=== PATIENT | female | born 1960 | race Two or more races ===

== ENCOUNTER 2019-10-19 15:00 | Inpatient (IN) | payer MEDICAID ==
[~2019-10-19] VITALS: Ht 167.6 cm; Wt 48.1 kg
--- NOTE | 2019-10-19 15:16 | NUR ---
BIB [facility] C/O CHILLS AND BODY ACHES X 1 WEEK. +FEVER, PRESENTS MOANING AND IN DISCOMFORT. PT COMPLETED DIALYSIS TODAY, AV SHUNT AT RIGHT UPPER ARM. LEFT BELOW THE KNEE AMPUTATION. HAVING SOME SOB, PLACED ON 2L VIA NC. SKIN WARM, DRY, INTACT. PLACED ON MONITOR, READY FOR EVAL.
[2019-10-19 16:09] LABS: BASOPHILS % (AUTO) 0.7 % (0.0-2.0); HEMATOCRIT 30 % (33-45); HEMOGLOBIN 9.9 g/dL (11.5-14.8); LYMPHOCYTES # (AUTO) 0.8 /CMM (0.8-4.8); LYMPHOCYTES % (AUTO) 15.4 % (20.0-44.0); MEAN CORPUSCULAR HGB CONC 33 g/dl (31.0-36.0); MEAN CORPUSCULAR VOLUME 95 fL (82-100); MONOCYTES # (AUTO) 0.3 /CMM (0.1-1.30); MONOCYTES % (AUTO) 6.2 % (2.0-12.0); NEUTROPHILS # (AUTO) 3.8 /CMM (1.8-8.9); NEUTROPHILS % (AUTO) 77.7 % (43.0-81.0); PLATELET COUNT (AUTO) 112 /CMM (150-450); RED BLOOD CELL COUNT(AUTO) 3.18 MIL/uL (4.0-5.2); WHITE BLOOD COUNT (AUTO) 4.9 K/uL (4.3-11.0)
--- NOTE | 2019-10-19 16:10 | NUR ---
IV LINE ESTABLISHED, BLOOD AND BLOOD CULTURES DRAWN. FLU AND MURPHY SWAB COMPLETE. ALL SENT TO STAT LAB. PT JORJE WELL.
--- NOTE | 2019-10-19 16:13 | NUR ---
ICE CREAM TRUCK DRIVER AT BEDSIDE
[2019-10-19 16:19] LABS: CALCIUM, SERUM 8.5 mg/dL (8.5-10.1); CREATININE 5.9 mg/dL (0.6-1.3); POTASSIUM 4.8 mmol/L (3.5-5.1)
[2019-10-19 16:26] LABS: ALBUMIN 2.6 g/dL (3.4-5.0); BILIRUBIN,DIRECT 0.1 mg/dL (0.0-0.2); BILIRUBIN,TOTAL 0.4 mg/dL (0.2-1.0); TOTAL PROTEIN, SERUM 7.1 g/dL (6.4-8.2)
[2019-10-19] MEDS ORDERED: SEVE800T8 PO (16:43)
[2019-10-19] MEDS ORDERED: LORA10TA7 PO (16:43)
[2019-10-19] MEDS ORDERED: LOPE2TAB25 PO (16:43)
[2019-10-19] MEDS ORDERED: VIT1TABL46 PO (16:43)
[2019-10-19] MEDS ORDERED: AMIN30LI2 PO (16:43)
[2019-10-19] MEDS ORDERED: SENN-175 PO (16:43)
[2019-10-19] MEDS ORDERED: CARV12.52 PO (16:43)
[2019-10-19] MEDS ORDERED: GABA-534 PO (16:43)
[2019-10-19] MEDS ORDERED: FLUT16SP16 NS (16:43)
[2019-10-19] MEDS ORDERED: CLON0.1T PO (16:43)
[2019-10-19] MEDS ORDERED: ACET325T53 PO (16:43)
[2019-10-19] MEDS ORDERED: BISA10SU61 RC (16:43)
[2019-10-19] MEDS ORDERED: CLOP75TA15 PO (16:43)
[2019-10-19] MEDS ORDERED: INSU100V39 SQ (16:43)
[2019-10-19] MEDS ORDERED: INSU100I26 SQ ×2 (16:43)
[2019-10-19] MEDS ORDERED: ATOR80TA PO (16:43)
[2019-10-19] MEDS ORDERED: CHOL500062 PO (16:43)
[2019-10-19] MEDS ORDERED: DEXT15DR6 OP (16:43)
[2019-10-19] MEDS ORDERED: OMEP20CA15 PO (16:43)
[2019-10-19] MEDS ORDERED: DICL100G16 TP (16:44)
[2019-10-19] MEDS ORDERED: MEROPENEM 500 MG in IV NS 0.9% 50 ML IV ONE (17:00)
[2019-10-19] MEDS ORDERED: ACETAMINOPHEN 325 MG TABLET PO ONE (17:00)
[2019-10-19] MEDS ORDERED: VANCOMYCIN 1 GM in IV D5W 250 ML IV ONE ×2 (17:00→20:00)
[2019-10-19] MEDS ORDERED: AZITHROMYCIN 500 MG in IV D5W 250 ML IV ONE (17:00)
[2019-10-19] MEDS ORDERED: ACETAMINOPHEN 325 MG TABLET ONE (17:04)
[2019-10-19] MEDS ORDERED: ASPIRIN 81 MG TAB.CHEW PO ONE (17:30)
--- NOTE | 2019-10-19 17:55 | NUR ---
Darrell ann in [facility] - 10/19/19 at 1804 by PATRICIA AFRICA CATH PLACED PER MD TONEY, URINE SENT TO STAT LAB
--- NOTE | 2019-10-19 17:55 | NUR ---
LEGER CATH PLACED PER MD ORDER, URINE SENT TO STAT LAB. CATHETER DC'D
[2019-10-19] MEDS ORDERED: ACETAMINOPHEN 325 MG TABLET PO PRN (18:00)
[2019-10-19 18:10] LABS: APPEARANCE,URINE Turbid (CLEAR); BILIRUBIN,URINE Negative (NEGATIVE); BLOOD, URINE Moderate Ery/uL (NEGATIVE); COLOR,URINE Yellow (YELLOW); KETONES,URINE Trace (NEGATIVE); LEUKOCYTE ESTERASE ,URINE Large (NEGATIVE); NITRITE, URINE Negative (NEGATIVE); PH,URINE 7.5 (5.0-8.0); PROTEIN,URINE >=300 mg/dl (NEGATIVE); UGLUCOSE Negative (NEGATIVE); UROBILINOGEN,URINE 0.2 EU/dL (0.2)
[2019-10-19 18:21] LABS: BACTERIA,URINE Many /HPF (None Seen); SQUAMOUS EPITHELIAL CELL,UR Rare /HPF (None Seen); WBC,URINE 21-50 /HPF (0-3)
[2019-10-19 18:33] LABS: ABG PCO2 39.5 mmHg (35.0-45.0); ABG PH 7.481 (7.350-7.450); ABG PO2 88.1 mmHg (75.0-100.0); AaDO2 93.8 mmHg; COHb 1.3 % (0.5-1.5); MetHb 0.3 % (0.0-1.5); O2Hb 94.5 % (94.0-97.0); SITE, ABG Left Brachial; VENT MODE, BG Nasal Cannula
--- NOTE | 2019-10-19 18:40 | NUR ---
REPORT GIVEN TO SANTY MAGANA FOR 117-1 T, E[facility] ADMITTING.
[2019-10-19] MEDS ORDERED: VANCOMYCIN 500 MG in IV D5W 100 ML IV PRN (19:00)
[2019-10-19] MEDS ORDERED: HYDROCODONE/APAP 5/325MG 1 EACH TABLET PO PRN (19:00)
[2019-10-19] MEDS ORDERED: MAG HYDROX/AL HYDROX/SIMETH 30 ML UDC PO PRN (19:00)
[2019-10-19] MEDS ORDERED: Z GUARD REMEDY 2 OZ OINT TP PRN (19:00)
[2019-10-19] MEDS ORDERED: ONDANSETRON HCL/PF 4 MG/2 ML VIAL IVP PRN (19:00)
[2019-10-19] MEDS ORDERED: MAGNESIUM HYDROXIDE 30 ML UDC PO PRN (19:00)
--- NOTE | 2019-10-19 19:00 | NUR ---
PT TRANSFERR[facility]
[2019-10-19] MEDS ORDERED: FEE PK DOSING 1 MIN EA MC ONE (19:03)
[2019-10-19] MEDS ORDERED: ASPIRIN 81 MG TAB.CHEW ONE (19:17)
[2019-10-19] MEDS: HYDROXYCHLOROQUINE 200 MG TABLET PO SCH (19:46)
[2019-10-19 20:00] VITALS: BP 116/64
--- NOTE | 2019-10-19 20:19 | NUR ---
RN NOTE RECEIVED ALERT FOR TROPONIN LEVEL 1.711 TRENDING UPWARD FROM 1.469. PAGED EAGLE MACK.
--- NOTE | 2019-10-19 20:25 | NUR ---
RN NOTE DR. GUILLERMO CALLED BACK REGARDING TROPONIN LEVEL. NO NEW ORDERS GIVEN.
[2019-10-19 20:52] LABS: C-REACTIVE PROTEIN 33.1 mg/dL (0.0-0.9)
[2019-10-19] MEDS: ACETAMINOPHEN 325 MG TABLET PO PRN (21:19)
[2019-10-20] VITALS: BP 138/54
--- NOTE | 2019-10-20 01:20 | NUR ---
RN NOTE RECEIVED ALERT FOR TROPONIN LEVEL 1.490. NOTED TO BE TRENDING DOWNWARD. NOTIFIED PENG TOSCANO (ASSISTANT DEAN OF STUDENTS ATLASSIAN ADMINISTRATOR) WITH NO NEW ORDERS.
--- NOTE | 2019-10-20 03:15 | NUR ---
RN NOTE PT WITH COMPLAINT OF RECURRENT ABDOMINAL PAIN. PT STATES SHE HAS NOT HAD A BOWEL MOVEMENT IN 3 DAYS. ADMINISTERED MILK OF MAGNESIA 30ML PO AT 0039 BUT INEFFECTIVE. PENG TOSCANO (POWER PLANT MANAGER) NOTIFIED WITH ORDER TO ADMINISTER HALF A BOTTLE OF MAGNESIUM CITRATE AND 1 APPLICATION OF FLEET ENEMA. ORDER NOTED AND CARRIED OUT.
--- NOTE | 2019-10-20 03:15 | NUR ---
RN NOTE PENG GODFREY ALSO WITH ORDER TO DO KUB. ORDER NOTED AND CARRIED OUT.
[2019-10-20] MEDS ORDERED: MAGNESIUM CITRATE 296 ML BOTTLE PO ONE (03:30)
[2019-10-20] MEDS ORDERED: NA PHOS,M-B/NA PHOS,DI-BA 1 EA ENEMA RC PRN (03:30)
[2019-10-20 04:00] VITALS: BP 135/63
[2019-10-20] MEDS: ACETAMINOPHEN 325 MG TABLET PO PRN ×2 (04:07→12:43)
--- NOTE | 2019-10-20 04:07 | NUR ---
RN NOTE PT NOTED WITH TEMP 100.9 ORALLY. ADMINISTERED ACETAMINOPHEN 325MG 2 TABS PO FOR HIGH TEMP. COOLING MEASURES APPLIED. PENG TOSCANO WINDOW AIR CONDITIONER INSTALLER NOTIFIED WITH ORDER TO DO REPEAT BLOOD CULTURES. ORDER NOTED AND CARRIED.
[2019-10-20 06:22] LABS: BASOPHILS % (AUTO) 0.4 % (0.0-2.0); EOSINOPHILS % (AUTO) 0.1 % (0.0-6.0); HEMATOCRIT 29 % (33-45); HEMOGLOBIN 9.7 g/dL (11.5-14.8); LYMPHOCYTES # (AUTO) 0.8 /CMM (0.8-4.8); LYMPHOCYTES % (AUTO) 15.5 % (20.0-44.0); MEAN CORPUSCULAR HGB CONC 33 g/dl (31.0-36.0); MEAN CORPUSCULAR VOLUME 95 fL (82-100); MONOCYTES # (AUTO) 0.3 /CMM (0.1-1.30); MONOCYTES % (AUTO) 7.1 % (2.0-12.0); NEUTROPHILS # (AUTO) 3.7 /CMM (1.8-8.9); NEUTROPHILS % (AUTO) 76.9 % (43.0-81.0); PLATELET COUNT (AUTO) 112 /CMM (150-450); RED BLOOD CELL COUNT(AUTO) 3.09 MIL/uL (4.0-5.2); WHITE BLOOD COUNT (AUTO) 4.9 K/uL (4.3-11.0)
[2019-10-20 06:48] LABS: ALBUMIN 2.5 g/dL (3.4-5.0); BILIRUBIN,TOTAL 0.4 mg/dL (0.2-1.0); CALCIUM, SERUM 8.6 mg/dL (8.5-10.1); CREATININE 7.4 mg/dL (0.6-1.3); POTASSIUM 4.7 mmol/L (3.5-5.1)
--- NOTE | 2019-10-20 07:30 | NUR ---
LICENSED MASS REAL ESTATE APPRAISER NOTES RECEIVED WRITTEN REPORT FROM MOBILE SECURITY SPECIALIST NURSE SHABNAM RN, PT IN BED, RESTING, ALERT AND ORIENTED, NO SOB, NO SIGN OF PAIN, KEPT COMFORTABLE, CALL LIGHT WITHIN REACH.
[2019-10-20 08:00] VITALS: BP 97/25
[2019-10-20] MEDS: SEVELAMER CARBONATE 800 MG TABLET PO SCH ×3 (08:38→17:00)
[2019-10-20] MEDS: GABAPENTIN 300 MG CAPSULE PO SCH (08:38)
[2019-10-20] MEDS: CLOPIDOGREL BISULFATE 75 MG TABLET PO SCH (08:38)
[2019-10-20] MEDS: HYDROXYCHLOROQUINE 200 MG TABLET PO SCH ×2 (08:38→16:22)
--- NOTE | 2019-10-20 08:57 | NUR ---
WOUND CARE CONSULT: REVIEWED NURSING DOCUMENTATION INCLUDING PHOTOS FROM ADMISSION WHICH SHOW SCRATCH DOWD TO ABDOMEN AND BACK WELL SACRAL SCARRING, PRESENT ON ADMISSION. RECOMMENDATIONS MADE FOR SKIN PROTECTION. DISCUSSED WITH NURSING STAFF AND VISUALIZATION DEVELOPER. WILL SEE PRN. CASTAÑEDA IN AGREEMENT WITH PLAN OF CARE. CURRENT RISHI SCORE IS 15.
--- NOTE | 2019-10-20 10:53 | NUR ---
DIRECTOR OF OUTREACH NOTES RECEIVED POSITIVE COVID RESULT, DR. GUILLERMO INFORMED.
[2019-10-20 12:00] VITALS: BP 123/65
[2019-10-20] MEDS: APIXABAN 2.5 MG TABLET PO SCH ×2 (12:59→16:23)
[2019-10-20 16:00] VITALS: BP 103/40
[2019-10-20] MEDS: MEROPENEM 500 MG in IV NS 0.9% 50 ML IV SCH (16:24)
[2019-10-20] MEDS ORDERED: AZITHROMYCIN 250 MG in IV D5W 250 ML IV SCH (18:00)
--- NOTE | 2019-10-20 18:34 | NUR ---
COKE PRODUCTION HEATER NOTES PT IN BED, ASLEEP, EASY TO AROUSE, ALERT AND ORIENTED, DENIES PAIN, NOT IN DISTRESS, DUE MEDS GIVEN ORDERED, DR. GUILLERMO INFORMED OF ELEVATED CALCITONIN, TROPONIN TRENDING DOWN, NO NEW ORDER GIVEN, PM CARE PROVIDED, ALL NEEDS ATTENDED.
--- NOTE | 2019-10-20 19:30 | NUR ---
RN MATERNAL CHILD NOTE RECEIVED PATIENT ALERT AWAKE ORIENTED X3. BREATHING NORMAL NO SOB NOTED. DENIES ANY PAIN OR DISCOMFORT. ON TELE MONITOR A-FIB/AFLUTTER. SKIN WARM AND DRY TO TOUCH. ABDOMEN SOFT AND NON DISTENDED. LFA G#20 INTACT. CLIVE AVF SHUNT NO S/S OF BLEEDING NO SWELLING NOTED. ALL SAFETY MEASURES IN PLACE, BED LOW AND LOCKED POSITION, CALL LIGHT WITHIN REACH. WILL CONT TO MONITOR.
[2019-10-20 20:00] VITALS: BP 134/63
[2019-10-20] MEDS: ATORVASTATIN 40 MG TABLET PO SCH (21:16)
[2019-10-21] VITALS: BP 111/63
[2019-10-21] MEDS: ACETAMINOPHEN 325 MG TABLET PO PRN (00:51)
[2019-10-21 04:00] VITALS: BP 100/60
--- NOTE | 2019-10-21 05:30 | NUR ---
CLEANING HANDYMAN NOTE BED BATH GIVEN PT TOLERATED WELL.
--- NOTE | 2019-10-21 06:15 | NUR ---
IRON WORKER APPRENTICE NOTE PATIENT RESTED WELL THROUGH OUT THE NIGHT. BREATHING NORMAL NO SOB NOTED. DENIES ANY PAIN OR DISCOMFORT. ROUTINE MEDICATIONS WERE GIVEN TOLERATED WELL. SKIN WARM AND DRY TO TOUCH. LFA G#20 INTACT. CLIVE AVF SHUNT NO S/S OF BLEEDING NO SWELLING NOTED. ISOLATION PRECAUTION MAINTAINED ALL THE TIMES. KEPT CLEAN DRY AND COMFORTABLE. ALL SAFETY MEASURES IN PLACE, BED LOW AND LOCKED POSITION, CALL LIGHT WITHIN REACH. WILL ENDORSE PATIENT TO AM NURSE FOR VANGIE.
[2019-10-21 07:44] LABS: BASOPHILS % (AUTO) 0.5 % (0.0-2.0); EOSINOPHILS % (AUTO) 0.2 % (0.0-6.0); HEMATOCRIT 31 % (33-45); HEMOGLOBIN 10.1 g/dL (11.5-14.8); LYMPHOCYTES # (AUTO) 1.3 /CMM (0.8-4.8); LYMPHOCYTES % (AUTO) 17.9 % (20.0-44.0); MEAN CORPUSCULAR HGB CONC 33 g/dl (31.0-36.0); MEAN CORPUSCULAR VOLUME 95 fL (82-100); MONOCYTES # (AUTO) 0.4 /CMM (0.1-1.30); MONOCYTES % (AUTO) 5.3 % (2.0-12.0); NEUTROPHILS # (AUTO) 5.4 /CMM (1.8-8.9); NEUTROPHILS % (AUTO) 76.1 % (43.0-81.0); PLATELET COUNT (AUTO) 136 /CMM (150-450); RED BLOOD CELL COUNT(AUTO) 3.26 MIL/uL (4.0-5.2)
[2019-10-21 08:00] VITALS: BP 140/80
[2019-10-21 08:03] LABS: CALCIUM, SERUM 9.1 mg/dL (8.5-10.1); POTASSIUM 5.3 mmol/L (3.5-5.1)
[2019-10-21] MEDS: SEVELAMER CARBONATE 800 MG TABLET PO SCH ×3 (08:30→17:08)
[2019-10-21] MEDS: HYDROXYCHLOROQUINE 200 MG TABLET PO SCH ×2 (08:30→17:08)
[2019-10-21] MEDS: CLOPIDOGREL BISULFATE 75 MG TABLET PO SCH (08:31)
[2019-10-21] MEDS: GABAPENTIN 300 MG CAPSULE PO SCH (08:31)
[2019-10-21] MEDS: APIXABAN 2.5 MG TABLET PO SCH ×2 (08:32→17:09)
[2019-10-21 08:33] LABS: CREATINE KINASE, TOTAL 288 U/L (26-192); FERRITIN 8927 ng/mL (8-388)
[2019-10-21 08:33] LABS: CREATININE 9.4 mg/dL (0.6-1.3)
[2019-10-21 08:39] LABS: IRON, SERUM 57 ug/dl (50-175); TOTAL IRON BINDING CAPACITY 80 ug/dl (250-450)
[2019-10-21 12:00] VITALS: BP 133/68
[2019-10-21 16:00] VITALS: BP 128/72
[2019-10-21] MEDS: MEROPENEM 500 MG in IV NS 0.9% 50 ML IV SCH (17:09)
[2019-10-21] MEDS: AZITHROMYCIN 250 MG TABLET PO SCH (18:16)
--- NOTE | 2019-10-21 19:30 | NUR ---
RN OPENING NOTES: Received pt resting in bed, A&Ox3, Citizen Of [place] speaking only. On isolation for Covid-19. On 2L/min NC tolerating well. No respiratory distress noted. On tele monitor showing controlled A-Fib. Has IV access on LFA #20. Line patent and flushed. Dressing c/d/i. Has CLIVE AVF. Safety measures in place. Will continue to monitor.
[2019-10-21 20:00] VITALS: BP 137/83
[2019-10-21] MEDS: CEFEPIME 1 GM in IV D5W 50 ML IV SCH (20:48)
[2019-10-21] MEDS: ATORVASTATIN 40 MG TABLET PO SCH (21:47)
[2019-10-22] VITALS: BP 130/54
[2019-10-22 04:00] VITALS: BP 124/48
--- NOTE | 2019-10-22 06:46 | NUR ---
RN CLOSING NOTE: Pt resting in bed. On 2L/min NC, tolerating well. No SOB or acute changes noted during shift. On isolation for positive Covid-19. On tele monitor showing SR. IV site on LFA #20 patent and flushed. Dressing c/d/i. AVF on CLIVE. All medications administered as ordered. No pain noted. Will endorse to AM nurse for VANGIE.
[2019-10-22 07:01] LABS: BASOPHILS # (AUTO) 0.1 /CMM (0.0-0.2); BASOPHILS % (AUTO) 0.6 % (0.0-2.0); EOSINOPHILS % (AUTO) 0.7 % (0.0-6.0); HEMATOCRIT 30 % (33-45); HEMOGLOBIN 9.6 g/dL (11.5-14.8); LYMPHOCYTES # (AUTO) 1.1 /CMM (0.8-4.8); LYMPHOCYTES % (AUTO) 13.1 % (20.0-44.0); MEAN CORPUSCULAR HGB CONC 32 g/dl (31.0-36.0); MEAN CORPUSCULAR VOLUME 95 fL (82-100); MONOCYTES # (AUTO) 0.4 /CMM (0.1-1.30); MONOCYTES % (AUTO) 4.5 % (2.0-12.0); NEUTROPHILS # (AUTO) 6.6 /CMM (1.8-8.9); NEUTROPHILS % (AUTO) 81.1 % (43.0-81.0); PLATELET COUNT (AUTO) 167 /CMM (150-450); RED BLOOD CELL COUNT(AUTO) 3.14 MIL/uL (4.0-5.2); WHITE BLOOD COUNT (AUTO) 8.1 K/uL (4.3-11.0)
[2019-10-22 07:09] LABS: PTH, INTACT 197 pg/mL (15-65)
[2019-10-22 07:10] LABS: POTASSIUM 5.5 mmol/L (3.5-5.1)
[2019-10-22 07:13] LABS: CREATININE 9.9 mg/dL (0.6-1.3)
[2019-10-22] MEDS ORDERED: SODIUM POLYSTYRENE SULFONATE 15 G/60 ML BOTTLE PO ONE (07:30)
[2019-10-22 08:00] VITALS: BP 118/70
[2019-10-22] MEDS: GABAPENTIN 300 MG CAPSULE PO SCH (09:19)
[2019-10-22] MEDS: SEVELAMER CARBONATE 800 MG TABLET PO SCH ×3 (09:19→18:26)
[2019-10-22] MEDS: CLOPIDOGREL BISULFATE 75 MG TABLET PO SCH (09:20)
[2019-10-22] MEDS: AZITHROMYCIN 250 MG TABLET PO SCH (09:20)
[2019-10-22] MEDS: METOPROLOL SUCCINATE 25 MG TAB.SR.24H PO SCH (09:20)
[2019-10-22] MEDS: HYDROXYCHLOROQUINE 200 MG TABLET PO SCH ×2 (09:20→16:44)
[2019-10-22] MEDS: APIXABAN 2.5 MG TABLET PO SCH ×2 (09:22→16:45)
[2019-10-22 12:00] VITALS: BP 123/68
[2019-10-22 16:00] VITALS: BP 130/72
--- NOTE | 2019-10-22 18:56 | NUR ---
rn closing notes patient in stable condition. all needs attended and provided. all due meds given as ordered. kept patient skin clean and dry. wound tx rendered as ordered. kept patient safe and comfortable. bed in low/locked position, siderils up, HOB elevated. call light in reach. will endorsed accordingly.
--- NOTE | 2019-10-22 19:19 | NUR ---
RN OPENING NOTES: Received pt resting in bed A&Ox3. On 2L/min NC tolerating well. No SOB or respiratory distress noted. On tele monitor showing SR. Has IV site on LFA #20, patent and flushed. Dressing c/d/i. Has CLIVE AVF. No pain noted at this time. Safety measures in place. Bed in lowest and locked position, side rails up x2, call light within reach. Will continue to monitor.
[2019-10-22 20:00] VITALS: BP_SYST 118; BP_SYST 130; BP_DIAS 51; BP_DIAS 69
[2019-10-22] MEDS: CEFEPIME 1 GM in IV D5W 50 ML IV SCH (21:12)
[2019-10-22] MEDS: ATORVASTATIN 40 MG TABLET PO SCH (21:12)
[2019-10-23] VITALS: BP 134/67
[2019-10-23 04:00] VITALS: BP 124/61
--- NOTE | 2019-10-23 06:36 | NUR ---
RN CLOSING NOTES: Pt resting in bed, in stable condition. On 2L/min NC tolerating well. No SOB, respiratory distress, or acute changes noted during shift. IV site patent and flushing. All meds given as ordered. Safety measures in place. Will endorse to AM nurse for VANGIE.
--- NOTE | 2019-10-23 07:30 | NUR ---
RN OPENING NOTES: PT IN BED, AOX3, MALAYSIAN SPEAKING , LITTLE CHILEAN, ON 2L O2 VIA NC, RESPIRATION UNLABORED, NO DISTRESS, SINUS RHYTHM HR 72, DENIES PAIN OR DISCOMFORT AT THIS TIME. LFA G 20 FLUSHES WELL, SITE CLEAR, CLIVE AVF, THRILL PRESENT, SEE NURSING FLOWSHEET FOR SKIN ISSUES. CARDIAC DIET, DISCUSSED PLAN OF CARE, VERBALIZED UNDERSTANDING BUT NEEDS FURTHER INSTRUCTIONS, OBSERVED ISOLATION PRECAUTION FOR COVID +. SAFETY MEASURES IN PLACE. BED LOW AND LOCKED, CALL LIGHT WITHIN REACH, WILL MONITOR CLOSELY.
[2019-10-23 08:00] VITALS: BP 130/68
[2019-10-23] MEDS: METOPROLOL SUCCINATE 25 MG TAB.SR.24H PO SCH (08:12)
[2019-10-23] MEDS: SEVELAMER CARBONATE 800 MG TABLET PO SCH ×3 (08:13→17:00)
[2019-10-23 08:40] LABS: BASOPHILS % (AUTO) 0.3 % (0.0-2.0); EOSINOPHILS % (AUTO) 1.3 % (0.0-6.0); HEMATOCRIT 29 % (33-45); HEMOGLOBIN 9.7 g/dL (11.5-14.8); LYMPHOCYTES # (AUTO) 0.9 /CMM (0.8-4.8); LYMPHOCYTES % (AUTO) 10.7 % (20.0-44.0); MEAN CORPUSCULAR HGB CONC 33 g/dl (31.0-36.0); MEAN CORPUSCULAR VOLUME 94 fL (82-100); MONOCYTES # (AUTO) 0.4 /CMM (0.1-1.30); MONOCYTES % (AUTO) 4.3 % (2.0-12.0); NEUTROPHILS # (AUTO) 7.3 /CMM (1.8-8.9); NEUTROPHILS % (AUTO) 83.4 % (43.0-81.0); PLATELET COUNT (AUTO) 188 /CMM (150-450); WHITE BLOOD COUNT (AUTO) 8.8 K/uL (4.3-11.0)
[2019-10-23] MEDS: HYDROXYCHLOROQUINE 200 MG TABLET PO SCH ×2 (08:41→17:01)
[2019-10-23] MEDS: APIXABAN 2.5 MG TABLET PO SCH ×2 (08:41→17:01)
[2019-10-23] MEDS: CLOPIDOGREL BISULFATE 75 MG TABLET PO SCH (08:41)
[2019-10-23] MEDS: GABAPENTIN 300 MG CAPSULE PO SCH (08:41)
[2019-10-23 08:49] LABS: POTASSIUM 6.1 mmol/L (3.5-5.1)
[2019-10-23 08:52] LABS: CREATININE 11.3 mg/dL (0.6-1.3)
--- NOTE | 2019-10-23 09:30 | NUR ---
RN NOTES DUE MEDS GIVEN.
--- NOTE | 2019-10-23 11:00 | NUR ---
RN NOTES HD NURSE - BILL AT BEDSIDE.
[2019-10-23 12:00] VITALS: BP 126/68
[2019-10-23 16:00] VITALS: BP 125/60
[2019-10-23] MEDS: AZITHROMYCIN 250 MG TABLET PO SCH (17:00)
--- NOTE | 2019-10-23 18:48 | NUR ---
STEAM TANK OPERATOR NOTES ALL NEEDS MET, PT RESTING COMFORTABLY. NOT IN ANY DISTRESS. TURNED AND REPOSITIONED. PM CARE DONE. ISOLATION PROTOCOL FOR COVID OBSERVED DURING THE WHOLE SHIFT. NO OTHER SIGNIFICANT CHANGE IN CONDITION. WILL ENDORSE TO NEXT SHIFT FOR VANGIE.
[2019-10-23 20:00] VITALS: BP 138/66
[2019-10-23] MEDS: CEFEPIME 1 GM in IV D5W 50 ML IV SCH (20:25)
[2019-10-23] MEDS: ATORVASTATIN 40 MG TABLET PO SCH (22:41)
[2019-10-24] VITALS: BP 134/68
[2019-10-24 04:00] VITALS: BP 115/58
[2019-10-24 06:47] LABS: BASOPHILS % (AUTO) 0.5 % (0.0-2.0); EOSINOPHILS % (AUTO) 3.5 % (0.0-6.0); HEMATOCRIT 30 % (33-45); HEMOGLOBIN 9.8 g/dL (11.5-14.8); LYMPHOCYTES # (AUTO) 0.8 /CMM (0.8-4.8); MEAN CORPUSCULAR HGB CONC 32 g/dl (31.0-36.0); MEAN CORPUSCULAR VOLUME 96 fL (82-100); MONOCYTES # (AUTO) 0.4 /CMM (0.1-1.30); MONOCYTES % (AUTO) 6.3 % (2.0-12.0); NEUTROPHILS # (AUTO) 5.5 /CMM (1.8-8.9); NEUTROPHILS % (AUTO) 78.7 % (43.0-81.0); PLATELET COUNT (AUTO) 221 /CMM (150-450); RED BLOOD CELL COUNT(AUTO) 3.15 MIL/uL (4.0-5.2)
[2019-10-24 06:50] LABS: CALCIUM, SERUM 9.2 mg/dL (8.5-10.1); POTASSIUM 4.4 mmol/L (3.5-5.1)
--- NOTE | 2019-10-24 06:55 | NUR ---
RN MATERNAL CHILD CLOSING NOTE PATIENT RESTED WELL THROUGH OUT THE NIGHT. BREATHING NORMAL NO SOB NOTED. DENIES ANY PAIN OR DISCOMFORT. ROUTINE MEDICATIONS WERE GIVEN TOLERATED WELL. SKIN WARM AND DRY TO TOUCH. LFA G#20 INTACT. CLIVE AVF SHUNT NO S/S OF BLEEDING NO SWELLING NOTED. ISOLATION PRECAUTION MAINTAINED AND OBSERVED AT ALL THE TIMES. KEPT CLEAN DRY AND COMFORTABLE. ALL SAFETY MEASURES IN PLACE, BED LOW AND LOCKED POSITION, CALL LIGHT WITHIN REACH. WILL ENDORSE PATIENT TO AM NURSE FOR VANGIE.
[2019-10-24 07:03] LABS: CREATININE 9.1 mg/dL (0.6-1.3)
[2019-10-24 08:00] VITALS: BP 144/59
[2019-10-24] MEDS: GABAPENTIN 300 MG CAPSULE PO SCH (08:20)
[2019-10-24] MEDS: CLOPIDOGREL BISULFATE 75 MG TABLET PO SCH (08:20)
[2019-10-24] MEDS: HYDROXYCHLOROQUINE 200 MG TABLET PO SCH (08:20)
[2019-10-24] MEDS: SEVELAMER CARBONATE 800 MG TABLET PO SCH ×2 (08:20→12:52)
[2019-10-24] MEDS: APIXABAN 2.5 MG TABLET PO SCH (08:21)
[2019-10-24] MEDS: METOPROLOL SUCCINATE 25 MG TAB.SR.24H PO SCH (08:47)
[2019-10-24] MEDS ORDERED: APIX2.5T PO (11:07)
[2019-10-24] MEDS ORDERED: CEFT1VIA14 IJ (11:07)
[2019-10-24 12:00] VITALS: BP 133/60
--- NOTE | 2019-10-24 15:02 | NUR ---
THEATER TECHNICIAN NOTES PATIENT REFUSED THE PICTURE FOR HER SCRATCHES AND SACRAL SCAR( INTACT).
[2019-10-24 16:00] VITALS: BP 134/62
--- NOTE | 2019-10-24 16:20 | NUR ---
SALES STRATEGY MANAGER NOTES PATIENT IS A/OX2-3 ABLE TO FOLLOW [place] , STABLE , VITALS WITHIN NORMAL RANGES. STILL POSITIVE FOR COVID19 ISOLATION. REPORT GIVEN TO KOURTNEY MADERA AT [facility]. PATIENT REFUSED PICTURES TAKEN. BELONGINGS RETURNED AND SIGNED, DAUGHTERS ARE AWARE ABOUT THE TRANSPORTATION. RIGHT AC IV 20 G PATENT FLUSHED WELL. LEFT TO BE USED IN SNF. PATIENT TRANSFERRED BY SLEEPER CUTTER.
== END 2019-10-24 16:28 | DRG 720 ==
LOC: ER 15:07 → TELE1 18:28
PROVIDERS: ADMIT Internal Medicine; ATTEND Internal Medicine
PROC: 5A1D70Z Performance of Urinary Filtration, Intermittent, Less than 6 Hours Per Day (ICD-10-PCS; principal; 2019-10-21)
DX: A41.9 Sepsis, unspecified organism (principal); U07.1 COVID-19; I21.4 Non-ST elevation (NSTEMI) myocardial infarction; J96.01 Acute respiratory failure with hypoxia; E11.22 Type 2 diabetes mellitus with diabetic chronic kidney disease; D69.6 Thrombocytopenia, unspecified; E11.42 Type 2 diabetes mellitus with diabetic polyneuropathy; I12.0 Hypertensive chronic kidney disease with stage 5 chronic kidney disease or end stage renal disease; E11.51 Type 2 diabetes mellitus with diabetic peripheral angiopathy without gangrene; N18.6 End stage renal disease; J12.89 Other viral pneumonia; N39.0 Urinary tract infection, site not specified; Z99.2 Dependence on renal dialysis; I25.10 Atherosclerotic heart disease of native coronary artery without angina pectoris; Z86.73 Personal history of transient ischemic attack (TIA), and cerebral infarction without residual deficits; Z89.512 Acquired absence of left leg below knee; D63.1 Anemia in chronic kidney disease; E78.5 Hyperlipidemia, unspecified; Z66 Do not resuscitate; Z98.61 Coronary angioplasty status; Z87.891 Personal history of nicotine dependence; Z79.4 Long term (current) use of insulin; I48.92 Unspecified atrial flutter; Z79.01 Long term (current) use of anticoagulants; Z79.899 Other long term (current) drug therapy; K56.7 Ileus, unspecified; I48.91 Unspecified atrial fibrillation; E66.01 Morbid (severe) obesity due to excess calories; E21.1 Secondary hyperparathyroidism, not elsewhere classified; B96.89 Other specified bacterial agents as the cause of diseases classified elsewhere; I51.4 Myocarditis, unspecified
CPT/HCPCS: 36415; 36600; 71045-TC; 74018; 80048-TC; 80053-TC; 80076-TC; 80202-TC; 81000-TC; 82550-TC; 82728-TC; 82803-TC; 83540-TC; 83605-TC; 83615-TC; 83735-TC; 83970; 84100-TC; 84484-TC; 85025-TC; 85378-TC; 85730-TC; 86140-TC; 86706; 87040-TC; 87081-TC; 87086-TC; 87186-TC; 87340; 90935-TC; 97112-TC; 97530-TC; A4216; G0378; G0480; J0456; J0692; J2185; J3370; J7050; J7060